=== PATIENT | male | born 1960 | race Caucasian/White ===

== ENCOUNTER → 2022-02-15 | Day surgery (SDC) | payer BC, OTHER ==
[~2022-02-15] MED LIST: ASPIRIN81 MG PO; FENTANYL CITRATE/PF 100MCG/2 ML INJ ONE; HYGROTON25 MG PO; HYOSCYAMINE SULFATE 0.5 MG/ML INJ ONE; LIPITOR10 MG PO; LISINOPRIL PO; MIDAZOLAM HCL 5 MG/ML VIAL ONE; OMEPRAZOLE40 MG PO; ONDANSETRON HCL 4 MG ORAL DISINTEGRATING TAB ONE; PROPOFOL IV EMULSION 10 MG/ML 20 ML VIAL ONE
[2022-02-15 10:15] VITALS: BP 134/90
== END | disposition home or self-care (01) ==
LOC: OR 07:06
PROVIDERS: ATTEND Internal Medicine Gastroenterology
DX: Z12.11 Encounter for screening for malignant neoplasm of colon (principal); D12.5 Benign neoplasm of sigmoid colon; K57.30 Diverticulosis of large intestine without perforation or abscess without bleeding; K64.8 Other hemorrhoids; Z71.3 Dietary counseling and surveillance; I10 Essential (primary) hypertension; E11.9 Type 2 diabetes mellitus without complications; E78.00 Pure hypercholesterolemia, unspecified; Z71.89 Other specified counseling; Z88.1 Allergy status to other antibiotic agents; Z88.2 Allergy status to sulfonamides; Z01.810 Encounter for preprocedural cardiovascular examination; Z20.822 Contact with and (suspected) exposure to COVID-19; Z79.899 Other long term (current) drug therapy; Z68.29 Body mass index [BMI] 29.0-29.9, adult; Z86.16 Personal history of COVID-19; Z80.0 Family history of malignant neoplasm of digestive organs
CPT/HCPCS: 45385; 93005; J1980; J2250; J2704; J3010; Q0162; U0002

== ENCOUNTER 2024-07-03 14:52 | Emergency (ER) | payer BC ==
[~2024-07-03] VITALS: Ht 170.2 cm; Wt 79.4 kg
[~2024-07-03 14:52] MED LIST changes: -FENTANYL CITRATE/PF 100MCG/2 ML INJ ONE; -HYOSCYAMINE SULFATE 0.5 MG/ML INJ ONE; -MIDAZOLAM HCL 5 MG/ML VIAL ONE; -ONDANSETRON HCL 4 MG ORAL DISINTEGRATING TAB ONE; -PROPOFOL IV EMULSION 10 MG/ML 20 ML VIAL ONE
[2024-07-03 16:58] LABS: BASOPHILS # (AUTO) 0.1 (0.0-0.1); BASOPHILS % 0.5 % (0.0-1.0); EOSINOPHILS # (AUTO) 0.3 (0.0-0.4); EOSINOPHILS % 2.5 % (0.0-6.0); HEMATOCRIT 43.4 % (38.2-49.6); HEMOGLOBIN 14.7 g/dL (14.0-18.0); LYMPHOCYTES # (AUTO) 1.2 (1.0-3.2); MEAN CORPUSCULAR HEMOGLOBIN 32.2 pg (28-32); MEAN CORPUSCULAR HGB CONC 33.9 g/dL (31-35); MEAN CORPUSCULAR VOLUME 95.2 fL (81-99); MONOCYTES # (AUTO) 0.9 (0.2-0.8); MONOCYTES % 7.9 % (4.4-11.3); NEUTROPHILS # (AUTO) 8.4 (2.1-6.9); NEUTROPHILS % 77.9 % (38.7-80.0); PLATELET COUNT 249 x10e3/uL (140-360); RED BLOOD COUNT 4.56 x10e6/uL (4.3-5.7); RED CELL DISTRIBUTION WIDTH 12.2 % (11.7-14.4); WHITE BLOOD COUNT 10.72 x10e3/uL (4.8-10.8)
[2024-07-03 17:15] LABS: ANION GAP 17.1 mmol/L (8-16); CREATININE, SERUM 1.48 mg/dL (0.72-1.25); POTASSIUM 4.1 mmol/L (3.5-5.1)
[2024-07-03 20:26] LABS: BODY FLUID TYPE SYNOVIAL
[2024-07-03 20:27] LABS: BODY FLUID APPEARANCE CLOUDY; BODY FLUID COLOR RED
[2024-07-03 21:11] LABS: WBC,BODY FLUID 997 cells/uL
[2024-07-03 21:12] LABS: RBC,BODY FLUID 64000 cells/uL
[2024-07-03 21:44] LABS: LYMPHOCYTES,BODY FLUID 53 %; MONO/MACROPHG,BODY FLUID 14 %; NEUTROPHILS,BODY FLUID 7 %
[2024-07-03 21:45] LABS: TOTAL CELLS COUNTED (DIFF) 75
[2024-07-03] MEDS ORDERED: AMOX TR-K CLV1 EAC2 PO (21:48)
[2024-07-03 22:04] VITALS: PULSE 56; RESP 16; TEMP 99.1; O2SAT 95
== END 2024-07-03 22:05 | disposition home or self-care (01) ==
LOC: ER 16:30
DX: L03.115 Cellulitis of right lower limb (principal); M00.861 Arthritis due to other bacteria, right knee; I10 Essential (primary) hypertension; E78.5 Hyperlipidemia, unspecified; E11.65 Type 2 diabetes mellitus with hyperglycemia
CPT/HCPCS: 36415; 80048; 85025; 87070; 87205; 89051; 89060; 99284